=== PATIENT | male | born 1990 | race Asian ===

== ENCOUNTER 2020-04-16 08:00 | Outpatient (CLI) | payer OTHER ==
--- NOTE | 2020-04-16 15:26 | XRAY Report ---
PROCEDURE: Elbow 3 View LT INDICATIONS: LEFT ELBOW PAIN TECHNIQUE: 3 views of the elbow were acquired. COMPARISON: None. FINDINGS: Bones: No fractures or dislocations. No suspicious bony lesions. Soft tissues: No elbow joint effusion. There is mild soft tissue swelling dorsally overlying the ole cranon. No suspicious soft tissue calcifications. IMPRESSION: 1. No acute bony abnormality. 2. No joint effusion. 3. Mild soft tissue swelling dorsally is nonspecific but may reflect olecranon bursitis. Reviewed by: Rian Guerrier MD on 04/16/2020 3:24 PM PDT Approved by: Rian Guerrier MD on 04/16/2020 3:24 PM PDT Station ID: [id number]
== END 2020-04-16 23:59 | disposition home or self-care (01) ==
LOC: DI.S 08:00
PROVIDERS: ATTEND Physician Assistant Medical
DX: R93.89 Abnormal findings on diagnostic imaging of other specified body structures (principal)